=== PATIENT | male | born 1990 | race Caucasian/White ===

== ENCOUNTER 2020-10-19 09:36 | Emergency (ER) | payer OTHER ==
[2020-10-19 10:49] LABS: HEMOGLOBIN 14.9 gm/dl (14.0-17.5); RED BLOOD COUNT 4.91 M/UL (4.20-5.50); WHITE BLOOD COUNT 8.3 K/UL (4.5-11.0)
[2020-10-19 11:12] LABS: BUN/CREATININE RATIO 17 (0-10)
[2020-10-19] MEDS ORDERED: VIBRAMYCIN 100100 MG PO (13:16)
[2020-10-19] MEDS ORDERED: ZOFRAN ODT 4 MG4 MG PO (13:16)
[2020-10-19] MEDS ORDERED: IBUPROFEN800 MG PO (13:16)
== END 2020-10-19 13:13 | disposition home or self-care (01) ==
LOC: ER1 09:36
PROVIDERS: Emergency Medicine
DX: L08.9 Local infection of the skin and subcutaneous tissue, unspecified (principal); F17.200 Nicotine dependence, unspecified, uncomplicated; Z23 Encounter for immunization
CPT/HCPCS: 73630; 73701; 80053; 85025; 87040; 90471; 90715; 99284; Q9967